=== PATIENT | female | born 1965 | race Caucasian/White ===

== ENCOUNTER 2018-07-05 21:13 | Emergency (ER) | payer OTHER ==
[~2018-07-05] VITALS: Ht 172.7 cm; Wt 111.1 kg
[~2018-07-05 21:13] MED LIST: ATEN50TA; OME20GT; SERT-135
[2018-07-05 21:49] LABS: Basophils # (auto) 0 uL; Basophils % (auto) 0.9 % (0.0-2.0); Eosinophils # (auto) 0.1 uL; Hemoglobin 15.7 g/dL (12.2-16.2); Lymphocytes # (auto) 2.3 uL; Lymphocytes % (auto) 41.2 % (10.0-50.0); Mean Corpuscular Hemoglobin 29.9 pg (28.0-32.0); Mean Corpuscular Volume 87.9 fL (80.0-100.0); Monocytes # (auto) 0.5 uL; Monocytes % (auto) 8.6 % (0.0-12.0); Neutrophils # (auto) 2.8 uL; Neutrophils % (auto) 48.3 % (37.0-80.0); Nucleated Red Blood Cells % 0.2 %; Platelet Count (auto) 207 10^3/uL (140-450); Red Blood Cells 5.23 10^6/uL (4.0-5.20); Red Cell Distribution Width 12.9 % (11.8-14.3); White Blood Cell 5.7 10^3/uL (4.4-10.8)
[2018-07-05 22:06] LABS: INR 0.97 (0.9-1.15); Partial Thromboplastin Time 28.2 sec (23.78-33.04); Prothrombin Time 10.4 sec (9.27-12.13)
[2018-07-05 22:08] LABS: Alanine Aminotransferase 42 U/L (13-56); Albumin 3.9 g/dL (3.4-5.0); Anion Gap 5 (5-15); Aspartate Aminotransferase 22 U/L (15-37); BUN/Creatinine Ratio 28.4; Blood Urea Nitrogen 21 mg/dL (7-18); Calcium 8.9 mg/dL (8.5-10.1); Carbon Dioxide 25 mmol/L (21-32); Chloride 109 mmol/L (98-107); GFR African American 106 mL/min; GFR Non-African American 87 mL/min; Glucose 98 mg/dL (74-106); Magnesium 2.6 mg/dL (1.6-2.6); Potassium 4.2 mmol/L (3.5-5.1); Sodium 139 mmol/L (136-145)
[2018-07-05 22:13] LABS: Alkaline Phosphatase 140 U/L (45-117); Bilirubin, Total 0.3 mg/dL (0.2-1.0); Total Protein 7.3 g/dL (6.4-8.2)
[2018-07-06 02:00] VITALS: BP 113/74
== END 2018-07-06 04:20 | disposition home or self-care (01) ==
LOC: ER 21:13
DX: K22.70 Barrett's esophagus without dysplasia (principal); K21.9 Gastro-esophageal reflux disease without esophagitis; I10 Essential (primary) hypertension; F17.210 Nicotine dependence, cigarettes, uncomplicated; Z90.49 Acquired absence of other specified parts of digestive tract; Z90.710 Acquired absence of both cervix and uterus; Z88.0 Allergy status to penicillin; Z88.1 Allergy status to other antibiotic agents; Z88.8 Allergy status to other drugs, medicaments and biological substances
CPT/HCPCS: 36415; 71045; 80053; 83735; 83880; 84443; 84484; 85025; 85610; 85730; 93005

== ENCOUNTER 2020-12-05 15:46 | Emergency (ER) | payer OTHER ==
[~2020-12-05] VITALS: Ht 170.2 cm; Wt 125.2 kg
[~2020-12-05 15:46] MED LIST changes: -SERT-135; +SERT100T
[2020-12-05 16:26] LABS: Basophils # (auto) 0 10 ^3/uL (0-0.2); Basophils % (auto) 0.7 % (0.0-2.0); Eosinophils # (auto) 0.1 10 ^3/uL (0-0.8); Eosinophils % (auto) 2.8 % (0.0-7.0); Hematocrit 46.6 % (36.0-46.0); Lymphocytes # (auto) 2.3 10 ^3/uL (0.4-5.4); Lymphocytes % (auto) 42.9 % (10.0-50.0); Mean Corpuscular Hemoglobin 29.1 pg (28.0-32.0); Mean Corpuscular Hgb Conc. 34.4 g/dL (32.0-36.0); Mean Corpuscular Volume 84.7 fL (80.0-100.0); Monocytes # (auto) 0.5 10 ^3/uL (0-1.3); Monocytes % (auto) 10.1 % (0.0-12.0); Neutrophils # (auto) 2.3 10 ^3/uL (1.6-8.6); Neutrophils % (auto) 43.5 % (37.0-80.0); Nucleated Red Blood Cells % 0.3 %; Platelet Count (auto) 197 10^3/uL (140-450); Red Cell Distribution Width 13.6 % (11.8-14.3); White Blood Cell 5.3 10^3/uL (4.4-10.8)
[2020-12-05 16:43] LABS: Albumin 3.6 g/dL (3.4-5.0); Anion Gap 7 (5-15); Blood Urea Nitrogen 11 mg/dL (7-18); Calcium 9.4 mg/dL (8.5-10.1); Carbon Dioxide 25 mmol/L (21-32); Chloride 108 mmol/L (98-107); Glucose 90 mg/dL (74-106); Potassium 3.9 mmol/L (3.5-5.1); Sodium 140 mmol/L (136-145)
[2020-12-05 16:49] LABS: Alanine Aminotransferase 39 U/L (13-56); Alkaline Phosphatase 120 U/L (45-117); Aspartate Aminotransferase 30 U/L (15-37); BUN/Creatinine Ratio 15.7; Bilirubin, Total 0.3 mg/dL (0.2-1.0); GFR African American 112 mL/min; GFR Non-African American 92 mL/min; INR 1.04 (0.9-1.15); Partial Thromboplastin Time 28.8 sec (23.0-31.2); Total Protein 7.5 g/dL (6.4-8.2)
[2020-12-05] MEDS ORDERED: PROCHLORPERAZINE EDISYLATE 5 MG/ML 2ML VIAL IV ONE (17:15)
[2020-12-05] MEDS ORDERED: SODIUM CHLORIDE 0.9% 1,000 ML IV ONE (17:15)
[2020-12-05] MEDS ORDERED: MORPHINE SULF INJ 2 MG/ML SYRINGE 1ML IV ONE (17:15)
[2020-12-05] MEDS ORDERED: diphenhdrAMINE HCL 50 MG/1 ML VL IV ONE (17:15)
[2020-12-05 18:40] VITALS: BP 123/66
== END 2020-12-05 18:49 | disposition home or self-care (01) ==
LOC: ER 15:46 → EDBD 15:46 → ER 18:49
DX: I10 Essential (primary) hypertension (principal); G43.809 Other migraine, not intractable, without status migrainosus; K21.9 Gastro-esophageal reflux disease without esophagitis; Z90.49 Acquired absence of other specified parts of digestive tract; Z90.710 Acquired absence of both cervix and uterus
CPT/HCPCS: 36415; 70450; 80053; 83880; 84484; 85025; 85379; 85610; 85730; 93005; 96361; 96374; 96375; 99285; J0780; J1200; J2270; J7030

== ENCOUNTER 2025-08-14 13:44 | Emergency (ER) | payer OTHER ==
[~2025-08-14] VITALS: Ht 170.2 cm; Wt 127.2 kg
--- NOTE | 2025-08-14 14:04 | ECG ---
[facility] Test Date: 2025-08-14 Test Time: 14:00:53 Pat Name: MICHELE SILVA Department[facility] Patient [id number] Room: Gender: F Supervisor [place]: la : 1965 Requested By: ERIS CAMPOS Order Number: [id number] Reading MD: Amaury Florez Measurements Intervals [place] Rate: 80 P: 59 [place]: 164 QRS: -4 QRSD: 103 T: -27 QT: 394 QTc: 455 Interpretive Statements Sinus rhythm Probable left atrial enlargement Low voltage, precordial leads Borderline repolarization abnormality Electronically Signed On 08-14-2025 15:30:02 PST by Amaury Florez Please click the below link to view image of tracing.
[2025-08-14 14:25] LABS: Hematocrit 42.1 % (36.0-46.0); Hemoglobin 13.8 g/dL (12.2-16.2); Mean Corpuscular Hemoglobin 26.3 pg (28.0-32.0); Mean Corpuscular Volume 80.1 fL (80.0-100.0); Nucleated Red Blood Cells % 0.1 %
--- NOTE | 2025-08-14 14:26 | ED.PDOC ---
History of Present Illness HPI Comments 60 y/o morbidly obese F is BIBA from private residence for c/c of chest pain. Per EMS personnel report, patient called out for sudden, unprovoked, and atraumatic onset of sharp, left-sided chest, that radiates to her back, with associated nausea w/dry-heaving and headache at around 1000, this morning. Recent history of abnormal EKG she was found with during routine visit at [facility] on 08/05/25. Patient reports on then being called in for an in-person appointment on 08/11/25 and her troponin levels being checked and found benign. She has a significant history for anxiety, GERD, HTN, fatty liver, UT, appendectomy, cholecystectomy, hernia repair, hysterectomy, gastric sleeve, and occasional alcohol use. En route, patient received 324mg ASA, 0.4mg NTG, and IV Zofran. Pain is commented to be a 3.5/10, now, by patient. Chief Complaint: Chest Pain Time Seen by MD: 13:55 Primary Care Provider: B[place] Reviewed Notes: Nurses Notes, Spectrographic Analyst Notes, Medications, Allergies Allergies: Coded Allergies: Fentanyl (Verified Allergy, Severe, 11/22/10) Naproxen (Verified Allergy, Severe, "CHF", 11/22/10) Ketorolac (Verified Allergy, Intermediate, "CARDIAC SYMPTOMS", 11/22/10) Tromethamine (Verified Allergy, Intermediate, "CARDIAC SYMPTOMS", 11/22/10) Penicillins (Verified Allergy, Mild, RASH, 11/22/10) Home Meds Reported Medications Sertraline Hcl (Zoloft) 100 Mg Tab, DAILY 11/22/10 Omeprazole (Prilosec Susp (For Gt)) 20 Mg Ss, DAILY 11/22/10 Atenolol (Atenolol) 50 Mg Tab, 75 MG DAILY 11/22/10 Information Source: Patient, Emergency Med Personnel Mode of Arrival: EMS Severity: Moderate Timing: Hours Duration: Since onset Prehospital treatment: 12 Lead EKG, Accucheck, ASA, 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, NTG, Treatment (Zofran IV ), Other (IV access ) Past Medical History PAST MEDICAL HISTORY: Anxiety, Depression, GERD, HTN, Liver (Fatty liver ), UT Surgical History: Appendectomy, Cholecystectomy, Hernia Repair, Hysterectomy, Tonsillectomy Surgical History (Other): Gastric sleeve Family History Family History: Unknown Social History Smoker: Non-Smoker Alcohol: Occasionally Drugs: Denies Drug Use Lives In: Home Constitutional: denies: chills, diaphoresis, fatigue, fever, malaise, sweats, weakness, others EENTM: denies: blurred vision, double vision, ear bleeding, ear discharge, ear drainage, ear pain, ear ringing, eye pain, eye redness, hearing loss, mouth pain, mouth swelling, nasal discharge, nose bleeding, nose congestion, nose pain, photophobia, tearing, throat pain, throat swelling, voice changes, others Respiratory: denies: cough, hemoptysis, orthopnea, SOB at rest, shortness of breath, SOB with excertion, stridor, wheezing, others Cardiovascular: reports: chest pain; denies: dizzy spells, diaphoresis, Dyspnea on exertion, edema, irregular heart beat, left arm pain, lightheadedness, palpitations, PND, syncope, others Gastrointestinal: reports: nausea, others (dry heaving ); denies: abdomen dis tended, abdominal pain, blood streaked bowels, constipated, diarrhea, dysphagia, difficulty swallowing, hematemesis, melena, poor appetite, poor fluid intake, rectal bleeding, rectal pain, vomiting Genitourinary: denies: abnormal vagina bleeding, burning, dyspareunia, dysuria, flank pain, frequency, hematuria, incontinence, pain, , vagina discharge, urgency, others Neurological: reports: headache; denies: dizziness, fainting, left sided numbness, left sided weakness, numbness, paresthesia, pre-existing deficit, right sided numbness, right sided weakness, seizure, speech problems, tingling, tremors, weakness, others Musculoskeletal: reports: back pain; denies: gout, joint pain, joint swelling, muscle pain, muscle stiffness, neck pain, others Integumetry: denies: bruises, change in color, change in hair/nails, dryness, laceration, lesions, lumps, rash, wounds, others Allergic/Immunocompromised: denies: Difficulty Healing, Frequent Infections, Hives, Itching, others Hematologic/Lymphatic: denies: anemia, blood clots, easy bleeding, easy bruising, swollen glands, others Endocrine: denies: excessive hunger, excessive sweating, excessive thirst, excessive urination, flushing, intolerance to cold, intolerance to heat, unexplained weight gain, unexplained weight loss, others Psychiatric: denies: anxiety, bipolar disorder, depression, hopeless, panic disorder, schizophrenia, sleepless, suicidal, others All Other Systems: Reviewed and Negative Physical Exam General Appearance: Moderate Distress HEENT: Normal ENT Inspection, Pharynx Normal, TMs Normal Neck: Full Range of Motion, Non-Tender, Normal, Normal Inspection Respiratory: Chest Non-Tender, Lungs Clear, No Accessory Muscle Use, No Respiratory Distress, Normal Breath Sounds Cardiovascular: No Edema, No JVD, No Murmur, No Gallop, Normal Peripheral Pulses, Regular Rate/Rhythm Breast Exam: Deferred Gastrointestinal: No Organomegaly, Non Tender, No Pulsatile Mass, Normal Bowel Sounds, Soft Genitalia: Deferred Pelvic: Deferred Rectal: Deferred Extremities: No calf tenderness, Normal capillary refill, Normal inspection, Normal range of motion, Non-tender, No pedal edema Musculoskeletal : Apperance: Normal Neurologic: Alert, basket filler II-XII nml as Tested, No Motor Deficits, Normal Affect, Normal Mood, No Sensory Deficits Cerebellar Function: Normal Reflexes: Normal Skin: Dry, Normal Color, Warm Lymphatic: No Adenopathy Was a procedure done? Was a procedure done?: No EKG EKG : Pulse Rate (adult): 80 [place]: Normal Cardiac Rhythm: NSR Block: None Hypertrophy: LAE ST: Normal Differential Dx Considerations may include: AMI, PE, ACS, CAD, URI, PNA, angina, anxiety, gastritis, gastroenteritis, GERD, musculoskeletal pain, viral, among others X-Ray, Labs, Meds, VS Vital Signs Date Time Temp Pulse Resp B/P (MAP) Pulse Ox O2 Delivery O2 Flow Rate FiO2 08/14/25 15:28 66 08/14/25 14:26 80 08/14/25 14:00 80 08/14/25 13:50 97.9 85 18 124/73 96 97.9 Lab Test 08/14/25 15:07 08/14/25 14:09 Range/Units Troponin I High Sensitivity < 3 L < 3 L </=34 ng/L White Blood Count 4.2 L 4.4-10.8 10^3/uL Red Blood Count 5.26 H 4.0-5.20 10^6/uL Hemoglobin 13.8 12.2-16.2 g/dL Hematocrit 42.1 36.0-46.0 % Mean Corpuscular Volume 80.1 80.0-100.0 fL Mean Corpuscular Hemoglobin 26.3 L 28.0-32.0 pg Mean Corpuscular Hemoglobin Concent 32.9 32.0-36.0 g/dL Red Cell Distribution Width 14.2 11.8-14.3 % Platelet Count 212 140-450 10^3/uL Mean Platelet Volume 7.6 6.9-10.8 fL Neutrophils (%) (Auto) 41.1 37.0-80.0 % Lymphocytes (%) (Auto) 47.2 10.0-50.0 % Monocytes (%) (Auto) 8.9 0.0-12.0 % Eosinophils (%) (Auto) 2.0 0.0-7.0 % Basophils (%) (Auto) 0.8 0.0-2.0 % Neutrophils # (Auto) 1.7 1.6-8.6 10 ^3/uL Lymphocytes # (Auto) 2.0 0.4-5.4 10 ^3/uL Monocytes # (Auto) 0.4 0-1.3 10 ^3/uL Eosinophils # (Auto) 0.1 0-0.8 10 ^3/uL Basophils # (Auto) 0 0-0.2 10 ^3/uL Nucleated Red Blood Cells 0.1 % Sodium Level 142 136-145 mmol/L Potassium Level 3.8 3.5-5.1 mmol/L Chloride Level 108 H 98-107 mmol/L Carbon Dioxide Level 27 20-31 mmol/L Anion Gap 7 5-15 Blood Urea Nitrogen 16 9-23 mg/dL Creatinine 0.80 0.550-1.02 mg/dL Glomerular Filtration Rate Calc 84 >90 mL/min BUN/Creatinine Ratio 20.0 10.0-20.0 Serum Glucose 129 H 74-106 mg/dL Calcium Level 9.3 8.7-10.4 mg/dL PROCEDURE(s): CXRP - CHEST PORTABLE IMPRESSION: 1. No evidence of acute disease. The patient's CBC is within limits The chemistry panel is within limits The troponin level is negative x2 We did discuss the findings with the doctor at [place] The patient has been seen in the emergency department's for a similar complaint in the past Despite the negative troponins, we feel that the patient did have some persistent chest pain so the patient should be admitted to the hospitalist The patient is now stable for transfer and so they are going to be transferred the patient to their facility at [place] The authorization #[id number] Images Reviewed?: Images reviewed and evaluated by me Time of 1ST Reevaluation: 14:20 Reevaluation 1ST: Unchanged Patient Education/Counseling: Diagnosis, Treatment, Other (Need for hospital admission ) Family Education/Counseling: No Family Present SEPSIS Sepsis Screen Date sepsis recognized/suspect: Aug 14, 2025 Time Sepsis recognized/suspect: 1350 Recent Procedure: No On Antibiotic Therapy: No Respiratory Rate >20: No Heart Rate >90: No Temp<36 C (96.8 F) or >38.3 C: No SBP <90 or MAP <65 mmHG: No New Acute Mental Status Change: No Is the patient on CPAP, BIPAP,: No Physician Orders Chest Portable (08/14/25 13:55) Electrocardigram (08/14/25 13:55) Troponin-I Hs (08/14/25 16:55) Electrocardigram (08/14/25 14:55) Electrocardigram (08/14/25 16:55) He[place]ock Iv (08/14/25 ) Vital Signs Date Time Temp Pulse Resp B/P (MAP) Pulse Ox O2 Delivery O2 Flow Rate FiO2 08/14/25 15:28 66 08/14/25 14:26 80 08/14/25 14:00 80 08/14/25 13:50 97.9 85 18 124/73 96 97.9 Laboratory Tests Test 08/14/25 14:09 White Blood Count 4.2 10^3/uL (4.4-10.8) L Departure 1 Departure Time of Disposition: 17:06 Impression: Primary Impression: Acute chest pain Disposition: 51 HOSPICE/MEDICAL FACILITY Condition: Fair Critical Care Note Critical Care Time?: Yes (45 min-critical care time only) Stability Stability form required: Yes Stable for transfer: Intended for transfer (Health plan request transfer), To designated facility Heart Score Heart Score: Heart Score Response (Comments) Value History Moderate Suspicious 1 EKG Normal 0 Age 45-64 1 Risk Factors >3 or Hx ASHD 2 Troponin Normal limit 0 Total 4 I personally scribed for ERIS CAMPOS MD ([email or web address]) on 08/14/25 at 14:26. Electronically submitted by Ishmael Gomez ([email or web address]). I personally scribed for ERIS CAMPOS MD ([email or web address]) on 08/14/25 at 15:37. Electronically submitted by Ishmael Gomez ([email or web address]). I personally scribed for ERIS CAMPOS MD ([email or web address]) on 08/14/25 at 16:14. Electronically submitted by Ishmael Gomez ([email or web address]). ERIS CAMPOS MD Aug 14, 2025 14:26
[2025-08-14 14:33] LABS: Potassium 3.8 mmol/L (3.5-5.1); Sodium 142 mmol/L (136-145)
[2025-08-14 14:34] LABS: Anion Gap 7 (5-15); Carbon Dioxide 27 mmol/L (20-31)
[2025-08-14 14:35] LABS: Calcium 9.3 mg/dL (8.7-10.4)
[2025-08-14 14:37] LABS: Chloride 108 mmol/L (98-107)
[2025-08-14 14:39] LABS: BUN/Creatinine Ratio 20.0 (10.0-20.0); Blood Urea Nitrogen 16 mg/dL (9-23)
[2025-08-14 14:40] LABS: Glucose 129 mg/dL (74-106)
--- NOTE | 2025-08-14 15:12 | DVH ---
INDICATION: CHEST PAIN TECHNIQUE: Frontal view of the chest. COMPARISON: None FINDINGS: . The heart and mediastinal contours are grossly unremarkable. There is no evidence of pleural disease. The lungs are clear. The bony structures of the chest are intact without fracture. IMPRESSION: 1. No evidence of acute disease.
--- NOTE | 2025-08-14 15:30 | ECG ---
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
--- NOTE | 2025-08-14 17:18 | ECG ---
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
[2025-08-14 18:38] VITALS: BP 129/69; PULSE 82; RESP 16; TEMP 98.8; O2SAT 95
== END 2025-08-14 19:48 | disposition left against medical advice (07) ==
LOC: EDBD 13:44 → ER 13:44
DX: R07.89 Other chest pain (principal); F41.9 Anxiety disorder, unspecified; F32.A Depression, unspecified; I10 Essential (primary) hypertension; K21.9 Gastro-esophageal reflux disease without esophagitis; Z88.0 Allergy status to penicillin; Z88.5 Allergy status to narcotic agent; Z88.6 Allergy status to analgesic agent; Z90.49 Acquired absence of other specified parts of digestive tract; Z90.710 Acquired absence of both cervix and uterus; Z98.890 Other specified postprocedural states; Z79.899 Other long term (current) drug therapy
CPT/HCPCS: 36415; 71045; 80048; 84484; 85025; 93005; 99291